=== PATIENT | female | born 1960 | race Caucasian/White ===

== ENCOUNTER → 2022-11-22 | Outpatient (CLI) | payer SELFPAY ==
[~2022-11-22] MED LIST: ACCU-CHEK1 EACH; ASPIRIN 81M81 MG/TA2 PO; ATORVASTATIN CA40 MG PO; AVYCAZ 2 GM-0.2.5 GM IV; COZAAR25 M1 PO; DESENEX43 GM TP; FERROUS SULFATE1 GRA PO; GLUTOSE 1515 GM PO; GRALISE1 EACH PO; INSULIN AS100 UNIT/2 SQ; ISOSORBIDE MONO60 M2 PO; KAPSPARGO SPRIN25 MG PO; LASIX40 M1 PO; LEVEMIR100 U/M1 SQ; NITROSTAT0.4 M1 SL; PROTONIX TR40 M1 PO; TYLENOL 325MG325 MG PO
== END ==
LOC: RAD 10:43
DX: N13.39 Other hydronephrosis (principal)

== ENCOUNTER 2023-01-05 07:54 | Outpatient (RCR) | payer SELFPAY | END 2023-02-03 | disposition home or self-care (01) | LOC: CARDREHAB | DX: I25.2 Old myocardial infarction (principal) ==

== ENCOUNTER 2023-04-08 15:00 | Outpatient (RCR) | payer MEDICARE | END 2023-05-05 13:42 | disposition home or self-care (01) | LOC: CARDREHAB 15:00 | DX: Z48.812 Encounter for surgical aftercare following surgery on the circulatory system (principal); I25.2 Old myocardial infarction ==

== ENCOUNTER 2023-06-15 08:00 | Outpatient (RCR) | payer MEDICARE | END 2023-07-05 | disposition home or self-care (01) | LOC: CARDREHAB | DX: Z48.812 Encounter for surgical aftercare following surgery on the circulatory system (principal); Z95.5 Presence of coronary angioplasty implant and graft; I25.119 Atherosclerotic heart disease of native coronary artery with unspecified angina pectoris ==

== ENCOUNTER 2023-07-08 14:00 | Outpatient (RCR) | payer MEDICARE | END 2023-08-05 | disposition home or self-care (01) | LOC: CARDREHAB | DX: Z48.812 Encounter for surgical aftercare following surgery on the circulatory system (principal); Z95.5 Presence of coronary angioplasty implant and graft; I25.119 Atherosclerotic heart disease of native coronary artery with unspecified angina pectoris ==

== ENCOUNTER → 2023-09-22 | Outpatient (CLI) | payer MEDICARE | LOC: LAB 15:29 | DX: N30.20 Other chronic cystitis without hematuria (principal) ==

== ENCOUNTER → 2023-10-11 | Outpatient (CLI) | payer MEDICARE ==
[2023-10-11 14:39] LABS: TOTAL PROTEIN 6.8 g/dL (6.2-8.1)
[2023-10-11 14:41] LABS: TOTAL BILIRUBIN 0.4 mg/dL (0.2-1.2)
== END ==
LOC: LAB 14:00
DX: I11.0 Hypertensive heart disease with heart failure (principal); I50.22 Chronic systolic (congestive) heart failure; I25.5 Ischemic cardiomyopathy; E78.2 Mixed hyperlipidemia; I21.4 Non-ST elevation (NSTEMI) myocardial infarction; E11.9 Type 2 diabetes mellitus without complications; Z79.4 Long term (current) use of insulin; Z95.5 Presence of coronary angioplasty implant and graft